=== PATIENT | female | born 1950 | race Caucasian/White ===

== ENCOUNTER 2025-04-02 09:49 | Inpatient (IN) | payer MEDICARE ==
[~2025-04-02] VITALS: Ht 154.9 cm; Wt 83.5 kg
[2025-04-02 10:44] LABS: BASOPHILS % 0.2 % (0.0-1.0); EOSINOPHILS % 0.7 % (0.0-6.0); LYMPHOCYTES % 11.7 % (18.0-39.1); MONOCYTES % 6.3 % (4.4-11.3); NEUTROPHILS % 80.7 % (38.7-80.0); RED CELL DISTRIBUTION WIDTH 13.3 % (11.7-14.4)
[2025-04-02] MEDS: ONDANSETRON HCL INJ 2MG/ML 2ML 2 MG/ML VIAL IV STA (10:54)
[2025-04-02 11:14] LABS: EST GLOMERULAR FILTRATION RATE 41.0 ML/MIN (>=60)
[2025-04-02] MEDS ORDERED: SODIUM CHLORIDE 0.9% 1000ML 1,000 ML IV SCH (11:45)
[2025-04-02] MEDS: INSULIN REGULAR, HUMAN 100 UNIT/1 ML IV STA (13:01)
[2025-04-02] MEDS ORDERED: CEFTRIAXONE 2 GM in SODIUM CHLORIDE 0.9% 100 ML IV SCH ×2 (13:30→21:00)
[2025-04-02 14:14] VITALS: PULSE 104; O2SAT 96
[2025-04-02] MEDS: SODIUM CHLORIDE 0.9% 1000ML 1,000 ML IV SCH ×5 (14:20→22:20)
[2025-04-02] MEDS: CEFTRIAXONE 2 GM in SODIUM CHLORIDE 0.9% 100 ML IV SCH (14:22)
[2025-04-02] MEDS ORDERED: DEXTROSE 50% SYRINGE 50 ML IV PRN ×2 (15:30→17:15)
[2025-04-02] MEDS ORDERED: INSULIN LISPRO 100 UNIT/1 ML 3ML VIAL SQ SCH (16:30)
[2025-04-02] MEDS: INSULIN REGULAR, HUMAN 100 UNIT/1 ML SQ ONE (16:40)
[2025-04-02] MEDS: INSULIN GLARGINE 100 UNITS/ML VIAL SQ ONE (16:40)
[2025-04-02 16:41] LABS: LEUKOCYTE ESTERASE ,URINE NEGATIVE (NEGATIVE); PROTEIN,URINE DIPSTICK 2+ (NEGATIVE); URINE UROBILINOGEN 0.2 mg/dL (0.2 - 1)
[2025-04-02 16:54] LABS: WBC,URINE (MAN) 0-5 /HPF (0-5)
[2025-04-02 16:55] LABS: CALCIUM OXALATE CRYSTALS,UR FEW (FEW)
[2025-04-02 16:56] LABS: EPITHELIAL CELLS,URINE MODERATE /LPF; HYALINE CASTS 0-1 (0-1)
[2025-04-02] MEDS ORDERED: MELATONIN 5 MG TABLET PO PRN (17:15)
[2025-04-02] MEDS ORDERED: ONDANSETRON HCL 4 MG ORAL DISINTEGRATING TAB PO PRN (17:15)
[2025-04-02] MEDS ORDERED: ACETAMINOPHEN 325 MG TAB PO PRN (17:15)
[2025-04-02] MEDS: ONDANSETRON HCL INJ 2MG/ML 2ML 2 MG/ML VIAL IV PRN (17:20)
[2025-04-02] MEDS: FAMOTIDINE 20 MG/2 ML VIAL IV SCH (17:20)
[2025-04-02] MEDS ORDERED: FAMOTIDINE20 MG PO (17:48)
[2025-04-02] MEDS ORDERED: OXYBUTYNIN CHLOR5 M1 PO (17:48)
[2025-04-02] MEDS ORDERED: LEXAPRO20 MG PO (17:48)
[2025-04-02] MEDS ORDERED: ROSUVASTATIN CA20 MG PO (17:48)
[2025-04-02] MEDS ORDERED: METFORMIN HCL500 M1 PO (17:48)
[2025-04-02] MEDS ORDERED: PROTONIX20 MG PO (17:48)
[2025-04-02 17:56] VITALS: BP 139/87; PULSE 95; RESP 19; TEMP 98.7; O2SAT 96
[2025-04-02] MEDS: INSULIN REGULAR, HUMAN 100 UNIT/1 ML SQ SCH (20:58)
[2025-04-02 21:11] VITALS: TEMP 98.1
[2025-04-02 21:30] VITALS: PULSE 89; RESP 20; O2SAT 93
[2025-04-02] MEDS: INSULIN GLARGINE 100 UNITS/ML VIAL SQ SCH (21:30)
[2025-04-02 21:44] LABS: ABG HCO3 13 mmol/L (22-26); ABG PCO2 28 mmHg (35-45); ABG PH 7.29 (7.35-7.45); ABG PO2 72 mmHg (80-105); ABG TCO2 14
[2025-04-02 21:45] LABS: ABG BASE EXCESS -13.0 mmol/L (-2 - 3); ABG OXYGEN SATURATION 93.0 % (95-98)
[2025-04-02] MEDS ORDERED: POTASSIUM CHLORIDE 20MEQ/100ML 100 ML IV PRN (22:00)
[2025-04-02] MEDS ORDERED: POTASSIUM CHLORIDE 20MEQ/100ML 200 ML IV PRN (22:00)
[2025-04-02] MEDS ORDERED: SODIUM CHLORIDE 0.9% 100 ML ONE (22:09)
[2025-04-02 22:14] LABS: AMPHETAMINES SCREEN,URINE NEGATIVE (NEGATIVE); OPIATES SCREEN,URINE NEGATIVE (NEGATIVE)
[2025-04-02 22:15] LABS: CANNABINOIDS SCREEN,URINE NEGATIVE (NEGATIVE); COCAINE SCREEN,URINE NEGATIVE (NEGATIVE); METHADONE SCREEN, URINE NEGATIVE (NEGATIVE)
[2025-04-02] MEDS: INSULIN REGULAR, HUMAN 3ML VL 100 UNIT in SODIUM CHLORIDE 0.9% 100 ML IV SCH (22:16)
[2025-04-02 22:58] VITALS: PULSE 102; RESP 30
[2025-04-02 23:59] VITALS: BP 104/77; PULSE 102; RESP 26; TEMP 97.5; O2SAT 98
[2025-04-03] VITALS (33 sets, daily range): BP systolic 55–133; BP diastolic 11–81; PULSE 97–125; RESP 19–47; TEMP 97.7–98.3; O2SAT 92–100
[2025-04-03] MEDS: DEXTROSE 5%/0.45% SOD CHL 1,000 ML IV SCH
[2025-04-03] MEDS ORDERED: CEFTRIAXONE 1 GM in SODIUM CHLORIDE 0.9% 100 ML IV SCH ×2 (02:00→09:00)
[2025-04-03 02:45] LABS: EST GLOMERULAR FILTRATION RATE 66.0 ML/MIN (>=60)
[2025-04-03] MEDS ORDERED: CALCIUM GLUC 1 G/50 ML NACL 50 ML IV ONE (03:15)
[2025-04-03] MEDS: CALCIUM GLUC 1 G/50 ML NACL 100 ML IV ONE (03:19)
[2025-04-03] MEDS: CALCIUM GLUC 1 G/50 ML NACL 50 ML IV ONE ×2 (04:33→23:42)
[2025-04-03] MEDS: MAGNESIUM SULF 1GRAM/DEXTROSE 100 ML IV PRN (04:33)
[2025-04-03 06:20] LABS: BASOPHILS % 0.1 % (0.0-1.0); EOSINOPHILS % 0.0 % (0.0-6.0); LYMPHOCYTES % 12.9 % (18.0-39.1); MONOCYTES % 11.1 % (4.4-11.3); NEUTROPHILS % 75.2 % (38.7-80.0); RED CELL DISTRIBUTION WIDTH 13.3 % (11.7-14.4)
[2025-04-03 07:19] LABS: EST GLOMERULAR FILTRATION RATE 51.0 ML/MIN (>=60)
[2025-04-03] MEDS: METRONIDAZOLE 500MG/NS 100ML 100 ML IV SCH ×2 (08:52→23:35)
[2025-04-03] MEDS: MUPIROCIN 2% OINT 22 GM TUBE TOP SCH (08:52)
[2025-04-03] MEDS: ESCITALOPRAM OXALATE 10 MG TAB PO SCH (08:52)
[2025-04-03] MEDS: CIPROFLOXACIN 400 MG/D5W 200ML 200 ML IV SCH (09:09)
[2025-04-03 09:30] LABS: ABG BASE EXCESS -13.0 mmol/L (-2 - 3); ABG HCO3 13 mmol/L (22-26); ABG OXYGEN SATURATION 93.0 % (95-98); ABG PCO2 28 mmHg (35-45); ABG PH 7.29 (7.35-7.45); ABG PO2 72 mmHg (80-105); ABG TCO2 14
[2025-04-03 09:30] LABS: ABG BASE EXCESS -11.0 mmol/L (-2 - 3); ABG HCO3 15 mmol/L (22-26); ABG OXYGEN SATURATION 92.0 % (95-98); ABG PCO2 31 mmHg (35-45); ABG PH 7.31 (7.35-7.45); ABG PO2 69 mmHg (80-105); ABG TCO2 16
[2025-04-03 09:43] LABS: ABG BASE EXCESS -11.0 mmol/L (-2 - 3); ABG HCO3 15 mmol/L (22-26); ABG OXYGEN SATURATION 92.0 % (95-98); ABG PCO2 31 mmHg (35-45); ABG PH 7.31 (7.35-7.45); ABG PO2 69 mmHg (80-105); ABG TCO2 16
[2025-04-03 11:11] LABS: EST GLOMERULAR FILTRATION RATE 49.0 ML/MIN (>=60)
[2025-04-03] MEDS: INSULIN GLARGINE 100 UNITS/ML VIAL SQ SCH (12:14)
[2025-04-03 14:38] LABS: EST GLOMERULAR FILTRATION RATE 33.0 ML/MIN (>=60)
[2025-04-03] MEDS: SODIUM CHLORIDE 0.9% 1000ML 1,000 ML IV SCH (15:45)
[2025-04-03] MEDS ORDERED: DEXTROSE 50% SYRINGE 50 ML IV PRN (15:45)
[2025-04-03] MEDS: INSULIN LISPRO 100 UNIT/1 ML 3ML VIAL SQ SCH (16:30)
[2025-04-03] MEDS: RIFAXIMIN 550 MG TABLET PO SCH (17:00)
[2025-04-03] MEDS: PROPOFOL IV EMULSION 10MG/ML 100 ML IV PRN (17:08)
[2025-04-03] MEDS: FENTANYL 2000MCG/NS 250 250 ML IV PRN (17:29)
[2025-04-03] MEDS ORDERED: SODIUM BICARBONATE 8.4% SYRING 50 ML ONE (17:50)
[2025-04-03 17:52] LABS: ABG BASE EXCESS -24.0 mmol/L (-2 - 3); ABG HCO3 9 mmol/L (22-26); ABG OXYGEN SATURATION 100.0 % (95-98); ABG PCO2 26 mmHg (35-45); ABG PH 7.04 (7.35-7.45); ABG PO2 346 mmHg (80-105); ABG TCO2 8
[2025-04-03] MEDS: SODIUM BICARBONATE 8.4% VIAL 150 ML in DEXTROSE 5% 1,000 ML IV SCH (18:22)
[2025-04-03] MEDS: SODIUM BICARBONATE 8.4% INJ 50 ML SYR IV STA ×2 (18:36→22:55)
[2025-04-03] MEDS ORDERED: Vancomycin IV 1 GM in SODIUM CHLORIDE 0.9% 250ML 250 ML IV ONE (19:15)
[2025-04-03 19:20] LABS: BASOPHILS % 0.3 % (0.0-1.0); EOSINOPHILS % 0.1 % (0.0-6.0); LYMPHOCYTES % 13.1 % (18.0-39.1); MONOCYTES % 11.1 % (4.4-11.3); NEUTROPHILS % 73.2 % (38.7-80.0); RED CELL DISTRIBUTION WIDTH 13.3 % (11.7-14.4)
[2025-04-03 19:29] LABS: ABG BASE EXCESS -20.0 mmol/L (-2 - 3); ABG HCO3 9 mmol/L (22-26); ABG OXYGEN SATURATION 95.0 % (95-98); ABG PCO2 26 mmHg (35-45); ABG PH 7.15 (7.35-7.45); ABG PO2 95 mmHg (80-105); ABG TCO2 10
[2025-04-03 19:48] LABS: EST GLOMERULAR FILTRATION RATE 22.0 ML/MIN (>=60)
[2025-04-03] MEDS: NOREPINEPHRINE 8 MG/D5W 250 ML 250 ML IV SCH (20:26)
[2025-04-03] MEDS ORDERED: INSULIN LISPRO 100 UNIT/1 ML 3ML VIAL SQ SCH (21:15)
[2025-04-03] MEDS ORDERED: INSULIN REGULAR, HUMAN 3ML VL 100 UNIT in SODIUM CHLORIDE 0.9% 100 ML IV SCH (21:15)
[2025-04-03] MEDS ORDERED: SODIUM CHLORIDE 0.9% 100 ML ONE (22:02)
[2025-04-03] MEDS ORDERED: IOPAMIDOL 370 MG/ML 100 ML INFUS..BTL INJ ONE (22:02)
[2025-04-03] MEDS: LACTULOSE SYRUP 20 GM/30 ML UDC PO SCH (22:45)
[2025-04-03] MEDS: MAGNESIUM SULFATE 2GM/50ML 50 ML IV ONE (23:48)
[2025-04-04] VITALS (63 sets, daily range): BP systolic 51–188; BP diastolic 25–91; PULSE 85–101; RESP 18–24; TEMP 97.9; O2SAT 95–100
[2025-04-04] MEDS: HEPARIN SOD (PORCINE) 5,000 UNIT/ML VIAL ONE (01:23)
[2025-04-04] MEDS ORDERED: HEPARIN SOD (PORCINE) 1000 UNIT/ML SDV IV ONE (01:30)
[2025-04-04] MEDS: HEPARIN SOD (PORCINE) 1000 UNIT/ML SDV IV ONE (01:58)
[2025-04-04] MEDS: VASOPRESSIN 60 UNIT in DEXTROSE 5% 50ML 50 ML IV STA (02:31)
[2025-04-04 02:58] LABS: INR 1.7
[2025-04-04] MEDS: PHENYLEPHRINE 10MG/ML VIAL 40 MG in DEXTROSE 5% 250ML 246 ML IV SCH (03:08)
[2025-04-04 05:13] LABS: BASOPHILS % 0.2 % (0.0-1.0); EOSINOPHILS % 0.0 % (0.0-6.0); LYMPHOCYTES % 14.7 % (18.0-39.1); MONOCYTES % 12.2 % (4.4-11.3); NEUTROPHILS % 71.9 % (38.7-80.0); RED CELL DISTRIBUTION WIDTH 13.4 % (11.7-14.4)
[2025-04-04 05:42] LABS: EST GLOMERULAR FILTRATION RATE 20.0 ML/MIN (>=60)
[2025-04-04] MEDS ORDERED: DEXTROSE 50% SYRINGE 50 ML IV PRN (07:00)
[2025-04-04] MEDS: INSULIN REGULAR, HUMAN 3ML VL 100 UNIT in SODIUM CHLORIDE 0.9% 99 ML IV SCH (07:32)
[2025-04-04 07:54] LABS: ABG HCO3 15 mmol/L (22-26); ABG PCO2 21 mmHg (35-45); ABG PH 7.47 (7.35-7.45); ABG PO2 117 mmHg (80-105); ABG TCO2 16
[2025-04-04 07:55] LABS: ABG BASE EXCESS -9.0 mmol/L (-2 - 3); ABG OXYGEN SATURATION 99.0 % (95-98)
[2025-04-04] MEDS: SODIUM CHLORIDE 0.9% 1000ML 1,000 ML ONE ×2 (08:54→08:55)
[2025-04-04] MEDS: DEXTROSE 5% 250ML 250 ML IV ONE (08:55)
[2025-04-04 11:19] LABS: BAND NEUTROPHILS % (MANUAL) 4 %; LYMPHOCYTES % (MANUAL) 10 % (19-48); METAMYELOCYTES % (MANUAL) 1 % (0-0); MONOCYTES % (MANUAL) 9 % (3.4-9.0); MYELOCYTES % (MANUAL) 1 % (0-0); NEUTROPHILS % (MANUAL) 75 % (40-74)
[2025-04-04 11:20] LABS: PLATELET ESTIMATE SLIGHTLY DECREASED; PLATELET MORPHOLOGY COMMENT NORMAL
[2025-04-04] MEDS: INSULIN GLARGINE 100 UNITS/ML VIAL SQ ONE (16:30)
[2025-04-09 08:09] LABS: ABG BASE EXCESS -9.0 mmol/L (-2 - 3); ABG HCO3 15 mmol/L (22-26); ABG OXYGEN SATURATION 99.0 % (95-98); ABG PCO2 21 mmHg (35-45); ABG PH 7.47 (7.35-7.45); ABG PO2 117 mmHg (80-105); ABG TCO2 16
[2025-04-09 08:09] LABS: ABG BASE EXCESS -24.0 mmol/L (-2 - 3); ABG HCO3 7 mmol/L (22-26); ABG OXYGEN SATURATION 100.0 % (95-98); ABG PCO2 26 mmHg (35-45); ABG PH 7.04 (7.35-7.45); ABG PO2 346 mmHg (80-105); ABG TCO2 8
[2025-04-09 13:13] LABS: ABG BASE EXCESS -20.0 mmol/L (-2 - 3); ABG HCO3 9 mmol/L (22-26); ABG OXYGEN SATURATION 95.0 % (95-98); ABG PCO2 26 mmHg (35-45); ABG PH 7.15 (7.35-7.45); ABG PO2 95 mmHg (80-105); ABG TCO2 10
== END 2025-04-04 16:55 | disposition hospice, inpatient (51) | DRG 871 ==
LOC: ER 10:23 → ERHOLD 13:34 → OBSVTOIN 21:54 → ICU 23:37
PROVIDERS: ADMIT Family Medicine Adult Medicine; ATTEND Family Medicine Adult Medicine
PROC: 4A033B1 Measurement of Arterial Pressure, Peripheral, Percutaneous Approach (ICD-10-PCS; 2025-04-02)
PROC: 0BH17EZ Insertion of Endotracheal Airway into Trachea, Via Natural or Artificial Opening (ICD-10-PCS; principal; 2025-04-03)
PROC: 5A1935Z Respiratory Ventilation, Less than 24 Consecutive Hours (ICD-10-PCS; 2025-04-03)
PROC: 3E033XZ Introduction of Vasopressor into Peripheral Vein, Percutaneous Approach (ICD-10-PCS; 2025-04-03)
PROC: 0T9B70Z Drainage of Bladder with Drainage Device, Via Natural or Artificial Opening (ICD-10-PCS; 2025-04-03)
PROC: 05HM33Z Insertion of Infusion Device into Right Internal Jugular Vein, Percutaneous Approach (ICD-10-PCS; 2025-04-03)
PROC: 3E03329 Introduction of Other Anti-infective into Peripheral Vein, Percutaneous Approach (ICD-10-PCS; 2025-04-03)
PROC: 5A12012 Performance of Cardiac Output, Single, Manual (ICD-10-PCS; 2025-04-03)
PROC: 5A1D70Z Performance of Urinary Filtration, Intermittent, Less than 6 Hours Per Day (ICD-10-PCS; 2025-04-04)
PROC: 02HV33Z Insertion of Infusion Device into Superior Vena Cava, Percutaneous Approach (ICD-10-PCS; 2025-04-04)
PROC: 0D9670Z Drainage of Stomach with Drainage Device, Via Natural or Artificial Opening (ICD-10-PCS; 2025-04-04)
DX: A41.9 Sepsis, unspecified organism (principal); E11.10 Type 2 diabetes mellitus with ketoacidosis without coma; G93.41 Metabolic encephalopathy; I49.01 Ventricular fibrillation; I46.9 Cardiac arrest, cause unspecified; R65.21 Severe sepsis with septic shock; J96.01 Acute respiratory failure with hypoxia; N17.0 Acute kidney failure with tubular necrosis; I81 Portal vein thrombosis; N39.0 Urinary tract infection, site not specified; E72.20 Disorder of urea cycle metabolism, unspecified; E11.65 Type 2 diabetes mellitus with hyperglycemia; E66.9 Obesity, unspecified; I10 Essential (primary) hypertension; E78.5 Hyperlipidemia, unspecified; H40.9 Unspecified glaucoma; D72.829 Elevated white blood cell count, unspecified; E86.0 Dehydration; K52.9 Noninfective gastroenteritis and colitis, unspecified; I45.10 Unspecified right bundle-branch block; R60.9 Edema, unspecified; K80.20 Calculus of gallbladder without cholecystitis without obstruction; D25.9 Leiomyoma of uterus, unspecified; R00.1 Bradycardia, unspecified; R34 Anuria and oliguria; E87.5 Hyperkalemia; E83.42 Hypomagnesemia; T38.3X5A Adverse effect of insulin and oral hypoglycemic [antidiabetic] drugs, initial encounter; E83.51 Hypocalcemia; Z68.32 Body mass index [BMI] 32.0-32.9, adult; Z86.73 Personal history of transient ischemic attack (TIA), and cerebral infarction without residual deficits; Z85.3 Personal history of malignant neoplasm of breast; Z90.13 Acquired absence of bilateral breasts and nipples; Z79.84 Long term (current) use of oral hypoglycemic drugs; Y92.009 Unspecified place in unspecified non-institutional (private) residence as the place of occurrence of the external cause
CPT/HCPCS: 36415; 36600; 70450; 71045; 74018; 74174; 74176; 80048; 80053; 80307; 81001; 82140; 82607; 82746; 82805; 82948; 83036; 83605; 83735; 83880; 84425; 84484; 85025; 85610; 85730; 87040; 87086; 92950; 93005; 93306; 94002; 94003; 94799; 99252; 99285; J0696; J1308; J1644; J1815; J2185; J2371; J2405; J3475; J7030; J7050; J7070; Q9967

== ENCOUNTER 2025-04-04 17:16 | Inpatient (IN) | payer OTHER ==
[~2025-04-04 17:16] MED LIST: FAMOTIDINE20 MG PO; LEXAPRO20 MG PO; METFORMIN HCL500 M1 PO; OXYBUTYNIN CHLOR5 M1 PO; PROTONIX20 MG PO; ROSUVASTATIN CA20 MG PO
[2025-04-04] MEDS ORDERED: ONDANSETRON HCL INJ 2MG/ML 2ML 2 MG/ML VIAL IV PRN (17:30)
[2025-04-04] MEDS ORDERED: LORAZEPAM INJ 2 MG/ML VIAL IV PRN (17:30)
[2025-04-04] MEDS ORDERED: ACETAMINOPHEN 650 MG SUPP PR PRN (17:30)
[2025-04-04] MEDS ORDERED: Morphine 4mg INJECTION 4 MG/ML INJ IV PRN (17:30)
[2025-04-04] MEDS ORDERED: HYOSCYAMINE 0.125 MG TAB SL PRN (17:30)
[2025-04-04] MEDS ORDERED: SCOPOLAMINE 1 MG PATCH TOP PRN (17:30)
[2025-04-04 17:35] VITALS: BP 61/45; PULSE 94; RESP 14; TEMP 97.5; O2SAT 100
[2025-04-04] MEDS: LORAZEPAM INJ 2 MG/ML VIAL IV SCH (18:11)
[2025-04-04] MEDS: Morphine 4mg INJECTION 4 MG/ML INJ IV SCH (18:11)
== END 2025-04-04 20:35 | disposition expired | DRG 951 ==
LOC: ICU 17:16
PROVIDERS: ADMIT Family Medicine Adult Medicine; ATTEND Family Medicine Adult Medicine
PROC: 5A1935Z Respiratory Ventilation, Less than 24 Consecutive Hours (ICD-10-PCS; principal; 2025-04-04)
DX: Z51.5 Encounter for palliative care (principal); J96.01 Acute respiratory failure with hypoxia; A41.9 Sepsis, unspecified organism; R65.21 Severe sepsis with septic shock; G93.41 Metabolic encephalopathy; I81 Portal vein thrombosis; E87.20 Acidosis, unspecified; I50.30 Unspecified diastolic (congestive) heart failure; E72.20 Disorder of urea cycle metabolism, unspecified; K55.1 Chronic vascular disorders of intestine; E11.9 Type 2 diabetes mellitus without complications; E78.5 Hyperlipidemia, unspecified; H40.9 Unspecified glaucoma; I45.10 Unspecified right bundle-branch block; E66.9 Obesity, unspecified; R60.9 Edema, unspecified; K80.20 Calculus of gallbladder without cholecystitis without obstruction; D25.9 Leiomyoma of uterus, unspecified; I11.0 Hypertensive heart disease with heart failure; Z79.84 Long term (current) use of oral hypoglycemic drugs; Z86.73 Personal history of transient ischemic attack (TIA), and cerebral infarction without residual deficits; Z68.32 Body mass index [BMI] 32.0-32.9, adult
CPT/HCPCS: J2060; J2270